=== PATIENT | female | born 1950 | race Caucasian/White ===

== ENCOUNTER 2025-02-21 18:29 | Emergency (ER) | payer OTHER ==
[~2025-02-21] VITALS: Ht 170.2 cm; Wt 83.9 kg
[2025-02-21 20:11] VITALS: TEMP 98.2
[2025-02-21 20:24] LABS: BASOPHILS % 0.5 % (0.0-1.0); EOSINOPHILS % 1.7 % (0.0-6.0); LYMPHOCYTES % 27.0 % (18.0-39.1); MONOCYTES % 9.1 % (4.4-11.3); NEUTROPHILS % 61.6 % (38.7-80.0); RED CELL DISTRIBUTION WIDTH 14.0 % (11.7-14.4)
[2025-02-21 20:48] LABS: INR 1.03
[2025-02-21 20:55] LABS: EST GLOMERULAR FILTRATION RATE 39.0 ML/MIN (>=60)
[2025-02-21] MEDS: HEPARIN SOD (PORCINE) 5,000 UNIT/ML VIAL IV ONE (21:16)
[2025-02-21] MEDS: HEPARIN SOD/DEXTROSE 5% 25000 UNIT/250 ML BAG IV SCH (21:17)
[2025-02-21 21:30] VITALS: PULSE 91; RESP 21
[2025-02-21 22:08] VITALS: BP 169/71; PULSE 99; RESP 19; TEMP 98.3; O2SAT 100
== END 2025-02-21 22:15 | disposition other institution (70) ==
LOC: ER 18:37
DX: M79.604 Pain in right leg (principal); I82.411 Acute embolism and thrombosis of right femoral vein; N28.9 Disorder of kidney and ureter, unspecified
CPT/HCPCS: 36415; 71045; 80053; 82550; 83690; 83880; 84484; 85025; 85610; 85730; 93005; 93971; 99284; J1644